=== PATIENT | female | born 1995 | race American Indian/Alaskan Native ===

== ENCOUNTER 2020-10-25 09:20 | Outpatient (CLI) | payer OTHER ==
[2020-10-25 10:58] VITALS: BP 106/68
[2020-10-25 11:11] LABS: Bacteria,Urine 1+ /HPF (Negative); Bilirubin,Urine SM (Negative); Blood,Urine NEG (Negative); Color,Urine Amber (Yellow); Mucus,Urine 3+ /HPF
--- NOTE | 2020-10-25 11:14 | Ultrasound Report ---
ULTRASOUND BIOPHYSICAL PROFILE INDICATION / CLINICAL INFORMATION: [facility]. COMPARISON: 05/20/2020 FINDINGS: BREATHING MOVEMENT = 2 GROSS BODY MOVEMENT = 2 TONE = 2 QUALITATIVE AMNIOTIC FLUID VOLUME = 2 TOTAL BIOPHYSICAL SCORE = 8/8 AMNIOTIC FLUID INDEX (cm) = 8.2 PRESENTATION: Cephalic. HEART RATE (beats per minute): 146 Additional findings: Posterior fundal placenta is unremarkable. No evidence of placental abruption. IMPRESSION: 1. Single live intrauterine without significant abnormality. 2. biophysical profile = 10/27 3. SONIA measures 8.2, within normal limits. Signer Name: Yong Iqbal MD Signed: 10/25/2020 11:07 AM Workstation Name: [id number]
[2020-10-25 11:15] LABS: Ictotest,Urine Negative (Negative)
--- NOTE | 2020-10-25 11:15 | Ultrasound Report ---
ULTRASOUND BIOPHYSICAL PROFILE INDICATION / CLINICAL INFORMATION: rule out placenta abruption. COMPARISON: 05/20/2020 FINDINGS: BREATHING MOVEMENT = 2 GROSS BODY MOVEMENT = 2 TONE = 2 QUALITATIVE AMNIOTIC FLUID VOLUME = 2 TOTAL BIOPHYSICAL SCORE = 8/8 AMNIOTIC FLUID INDEX (cm) = 8.2 PRESENTATION: Cephalic. HEART RATE (beats per minute): 146 Additional findings: Posterior fundal placenta is unremarkable. No evidence of placental abruption. IMPRESSION: 1. Single live intrauterine without significant abnormality. 2. biophysical profile = 10/27 3. SONIA measures 8.2, within normal limits. Signer Name: Yong Iqbal MD Signed: 10/25/2020 11:08 AM Workstation Name: [id number]
== END 2020-10-25 11:29 | disposition home or self-care (01) ==
LOC: TRG 09:20 → APU 09:24 → TRG 11:29
DX: O26.892 Other specified pregnancy related conditions, second trimester (principal); R10.9 Unspecified abdominal pain; Z3A.27 27 weeks gestation of pregnancy
CPT/HCPCS: 59025; 76815; 76819; 81001

== ENCOUNTER 2021-01-07 09:56 | Outpatient (CLI) | payer OTHER ==
[2021-01-07 10:54] VITALS: BP 124/76
--- NOTE | 2021-01-07 11:19 | Ultrasound Report ---
ULTRASOUND OBSTETRIC LIMITED WITH BPP INDICATION / CLINICAL INFORMATION: DECREASED HEARTRATE, LOW HEART RATE - SONIA. Clinical Gestational Age (GA) in weeks.days: 38 weeks and 3 days. TECHNIQUE: Transabdominal. COMPARISON: 10/25/2020. FINDINGS: NUMBER: Single PRESENTATION: cephalic PLACENTA: Posterior fundal. No evidence of placental abruption. AMNIOTIC FLUID VOLUME: normal AMNIOTIC FLUID INDEX (SONIA) in cm (if measured): 10.8 cm Cardiac activity was detected at 122 bpm. Biophysical profile score of 8 out of 8 was calculated with 2 points each for breathing movemen ts, movements, posture and tone, and amniotic fluid volume. IMPRESSION: Single live intrauterine in the cephalic presentation with estimated gestational age of 38 weeks and 3 days. Biophysical profile score of 8 out of 8. Cardiac activity is detected at 122 bpm. This is within the lower limits of normal. Signer Name: Ever Ennis MD Signed: 01/07/2021 11:15 AM Workstation Name: [id number]
== END 2021-01-07 11:03 | disposition home or self-care (01) ==
LOC: TRG 09:56 → APU 09:59 → TRG 11:03
PROVIDERS: ATTEND Obstetrics & Gynecology
DX: O36.8130 Decreased fetal movements, third trimester, not applicable or unspecified (principal); Z3A.38 38 weeks gestation of pregnancy
CPT/HCPCS: 59025; 76815; 76819

== ENCOUNTER 2021-02-04 08:16 | Emergency (ER) | payer OTHER ==
[2021-02-04] MEDS ORDERED: ONDANSETRON 4 MG/2 ML INJ IV ONE (09:03)
[2021-02-04] MEDS ORDERED: MORPHINE 4 MG/1 ML INJ IV ONE (09:03)
--- NOTE | 2021-02-04 09:08 | Emergency Department Report ---
ED General Adult HPI - General Chief complaint: Back Pain/Injury Stated complaint: Vomiting, back pain Time Seen by Provider: 02/04/21 09:02 Source: patient Mode of arrival: Ambulatory Limitations: No Limitations - History of Present Illness Initial comments: 25-year-old -[place] female patient presents with complaints of mid back pain and abdominal pain x3 weeks, worsening over the past 24 hours. She states the pain in her back feels like spasms and that it radiates through into her abdomen. Patient states she is 3 weeks and denies any complications from her vaginal delivery. No other past medical history per patient. She r eports nausea and vomiting without hematemesis/coffee-ground emesis. She also denies any fever/chills/sweats or difficulty breathing. Severity scale (0 -10): 10 - Related Data Home Medications Medication Instructions Recorded Confirmed Last Taken Tylenol See Protocol PO DAILY 02/04/21 02/04/21 Unknown Previous Rx's Medication Instructions Recorded Last Taken Type methocarbamoL [Methocarbamol] 750 - 1,500 mg PO TID PRN #30 02/04/21 Unknown Rx tablet Allergies Allergy/AdvReac Type Severity Reaction Status Date / Time No Known Allergies Allergy Unverified 10/25/20 09:37 ED Review of Systems ROS: Stated complaint: Vomiting, back pain Other details as noted in HPI Constitutional: denies: chills, fever, malaise ENT: denies: throat pain Respiratory: denies: cough, shortness of breath Cardiovascular: chest pain Gastrointestinal: abdominal pain, nausea, vomiting. denies: diarrhea, cons tipation, hematemesis, melena, hematochezia Genitourinary: denies: urgency, dysuria, frequency, hematuria Skin: denies: rash, change in color Neurological: denies: numbness, paresthesias ED Past Medical Hx - Past Medical History Previous Medical History?: No Hx Hypertension: No Hx Diabetes: No Hx Deep Vein Thrombosis: No Hx Renal Disease: No Hx Sickle Cell Disease: No Hx Seizures: No Hx Asthma: No Hx HIV: No - Surgical History Past Surgical History?: No - Social History Smoking Status: Never Smoker - Medications Home Medications: Home Medications Medication Instructions Recorded Confirmed Last Taken Type Tylenol See Protocol PO DAILY 02/04/21 02/04/21 Unknown History methocarbamoL [Methocarbamol] 750 - 1,500 mg PO TID PRN #30 02/04/21 Unknown Rx tablet ED Physical Exam - General Limitations: No Limitations General appearance: alert, other (Patient appears very uncomfortable) - Head Head exam: Present: atraumatic, normocephalic - Eye Eye exam: Present: normal appearance. Absent: scleral icterus - Neck Neck exam: Present: normal inspection - Respiratory Respiratory exam: Present: normal lung sounds bilaterally. Absent: respiratory distress - Cardiovascular Cardiovascular Exam: Present: normal rhythm, tachycardia (Mild) - GI/Abdominal GI/Abdominal exam: Present: soft, tenderness (Mid abdomen), normal bowel sounds. Absent: distended, rigid - Neurological Exam Neurological exam: Present: alert, oriented X3, normal gait - Psychiatric Psychiatric exam: Present: normal affect, normal mood ED Course Vital Signs 02/04/21 02/04/21 02/04/21 08:17 09:30 09:46 Temperature 97.9 F Pulse Rate 104 H 97 H 87 Respiratory 20 14 19 Rate Blood Pressure 161/105 Blood Pressure 164/111 [Right] O2 Sat by Pulse 98 100 Oximetry 02/04/21 02/04/21 02/04/21 10:00 10:02 10:16 Temperature 98.6 F Pulse Rate 91 H 81 90 Respiratory 20 20 15 Rate Blood Pressure 161/105 135/103 Blood Pressure [Right] O2 Sat by Pulse 99 99 98 Oximetry 02/04/21 02/04/21 11:24 12:30 Temperature Pulse Rate Respiratory Rate Blood Pressure 135/103 121/86 Blood Pressure [Right] O2 Sat by Pulse 98 Oximetry ED Medical Decision Making - Lab Data Result diagrams: 02/04/21 09:13 02/04/21 09:13 Lab Results 02/04/21 02/04/21 02/04/21 Range/Units 09:13 09:13 09:13 WBC 5.7 (4.5-11.0) K/mm3 RBC 5.79 H (3.65-5.03) M/mm3 Hgb 14.0 (10.1-14.3) gm/dl Hct 45.7 H (30.3-42.9) % MCV 79 (79-97) fl MCH 24 L (28-32) pg MCHC 31 (30-34) % RDW 14.9 (13.2-15.2) % Plt Count 253 (140-440) K/mm3 Lymph % (Auto) 25.4 (13.4-35.0) % [place] % (Auto) 7.3 (0.0-7.3) % Eos % (Auto) 4.7 H (0.0-4.3) % Baso % (Auto) 0.5 (0.0-1.8) % Lymph # (Auto) 1.5 (1.2-5.4) K/mm3 [place] # (Auto) 0.4 (0.0-0.8) K/mm3 Eos # (Auto) 0.3 (0.0-0.4) K/mm3 Baso # (Auto) 0.0 (0.0-0.1) K/mm3 Seg Neutrophils % 62.1 (40.0-70.0) % Seg Neutrophils # 3.6 (1.8-7.7) K/mm3 D-Dimer 971.52 H (0-234) ng/mlDDU Sodium 139 (137-145) mmol/L Potassium 4.6 (3.6-5.0) mmol/L Chloride 102.9 (98-107) mmol/L Carbon Dioxide 20 L (22-30) mmol/L Anion Gap 21 mmol/L BUN 15 (7-17) mg/dL Creatinine 0.6 (0.6-1.2) mg/dL Estimated GFR > 60 ml/min BUN/Creatinine Ratio 25 % Glucose 99 (65-100) mg/dL Calcium 10.0 (8.4-10.2) mg/dL Total Bilirubin 0.20 (0.1-1.2) mg/dL AST 36 (5-40) units/L ALT 27 (7-56) units/L Alkaline Phosphatase 119 (35-129) units/L Total Protein 8.0 (6.3-8.2) g/dL Albumin 4.5 (3.9-5) g/dL Albumin/Globulin Ratio 1.3 % Lipase 31 (13-60) units/L HCG, Qual (Negative) Urine Color (Yellow) Urine Turbidity (Clear) Urine pH (5.0-7.0) Ur Specific [place] (1.003-1.030) Urine Protein (Negative) mg/dL Urine Glucose (UA) (Negative) mg/dL Urine Ketones (Negative) mg/dL Urine Blood (Negative) Urine Nitrite (Negative) Ur Reducing Substances Urine Bilirubin (Negative) Urine Ictotest Urine Urobilinogen (<2.0) mg/dL Ur Leukocyte Esterase (Negative) Urine WBC (Auto) (0.0-6.0) /HPF Urine RBC (Auto) (0.0-6.0) /HPF U Epithel Cells (Auto) (0-13.0) /HPF Urine Mucus /HPF Urine HCG, Qual (Negative) 02/04/21 02/04/21 Range/Units 09:42 12:36 WBC (4.5-11.0) K/mm3 RBC (3.65-5.03) M/mm3 Hgb (10.1-14.3) gm/dl Hct (30.3-42.9) % MCV (79-97) fl MCH (28-32) pg MCHC (30-34) % RDW (13.2-15.2) % Plt Count (140-440) K/mm3 Lymph % (Auto) (13.4-35.0) % [place] % (Auto) (0.0-7.3) % Eos % (Auto) (0.0-4.3) % Baso % (Auto) (0.0-1.8) % Lymph # (Auto) (1.2-5.4) K/mm3 [place] # (Auto) (0.0-0.8) K/mm3 Eos # (Auto) (0.0-0.4) K/mm3 Baso # (Auto) (0.0-0.1) K/mm3 Seg Neutrophils % (40.0-70.0) % Seg Neutrophils # (1.8-7.7) K/mm3 D-Dimer (0-234) ng/mlDDU Sodium (137-145) mmol/L Potassium (3.6-5.0) mmol/L Chloride (98-107) mmol/L Carbon Dioxide (22-30) mmol/L Anion Gap mmol/L BUN (7-17) mg/dL Creatinine (0.6-1.2) mg/dL Estimated GFR ml/min BUN/Creatinine Ratio % Glucose (65-100) mg/dL Calcium (8.4-10.2) mg/dL Total Bilirubin (0.1-1.2) mg/dL AST (5-40) units/L ALT (7-56) units/L Alkaline Phosphatase (35-129) units/L Total Protein (6.3-8.2) g/dL Albumin (3.9-5) g/dL Albumin/Globulin Ratio % Lipase (13-60) units/L HCG, Qual Negative (Negative) Urine Color Yellow (Yellow) Urine Turbidity Hazy (Clear) Urine pH 5.0 (5.0-7.0) Ur Specific [place] 1.043 H (1.003-1.030) Urine Protein <15 mg/dl (Negative) mg/dL Urine Glucose (UA) Neg (Negative) mg/dL Urine Ketones Neg (Negative) mg/dL Urine Blood Sm (Negative) Urine Nitrite Neg (Negative) Ur Reducing Substances Not Reportable Urine Bilirubin Neg (Negative) Urine Ictotest Not Reportable Urine Urobilinogen < 2.0 (<2.0) mg/dL Ur Leukocyte Esterase Neg (Negative) Urine WBC (Auto) 4.0 (0.0-6.0) /HPF Urine RBC (Auto) 1.0 (0.0-6.0) /HPF U Epithel Cells (Auto) 25.0 H (0-13.0) /HPF Urine Mucus 1+ /HPF Urine HCG, Qual Negative (Negative) - Radiology Data Radiology results: report reviewed CTA CHEST WITH IV CONTRAST INDICATION: + dimer, tearing thoracic pain, 3 wk . TECHNIQUE: Axial CT images were obtained through the chest after injection of IV contrast. 3 plane MIP reconstructions were produced. All CT scans at this location are performed using CT dose reduction for ALARA by means of automated exposure control. COMPARISON: None available. FINDINGS: Pulmonary Arteries: No pulmonary emboli. Lungs: No significant abnormality. Trachea and Bronchi: No significant abnormality. Heart and Pericardium: No significant abnormality. Vasculature: No significant abnormality. Lymphatics: No lymphadenopathy. Additional Findings: None. Upper Abdomen: No acute findings. Skeletal Structures: No acute findings or aggressive bone lesions. IMPRESSION: 1. No CT evidence for pulmonary embolism. 2. No acute findings. - Medical Decision Making 25-year-old -[place] female patient presents with complaints of mid back pain and abdominal pain x3 weeks, worsening over the past 24 hours. She states the pain in her back feels like spasms and that it radiates through into her abdomen. Patient states she is 3 weeks and denies any complications from her vaginal delivery. No other past medical history per patient. She reports nausea and vomiting without hematemesis/coffee-ground emesis. She also denies any fever/chills/sweats or difficulty breathing. PERC score = 1. Patient also at risk of clot due to recent . Dimer positive. CTA chest and abdomen is negative for any acute abnormalities. Patient's pain has resolved with meds given here in the ED. blood pressure improved with pain control is now 126/86. She admits to hypertension during her that was monitored closely without medication. She is stable for discharge home and follow-up with PCP. Discussed in detail signs and symptoms that should prompt immediate return to the ED with patient who verbalizes understanding. Critical care attestation.: If time is entered above; I have spent that time in minutes in the direct care of this critically ill patient, excluding procedure time. ED Disposition Clinical Impression: Back pain, Abdominal pain, Muscle spasm Disposition: 01 HOME / SELF CARE / HOMELESS Is pt being admited?: No Condition: Stable Instructions: Muscle Cramps and Spasms, Abdominal Pain, Adult, [id number] Prescriptions: methocarbamoL [Methocarbamol] 750 - 1,500 mg PO TID PRN #30 tablet PRN Reason: Muscle spasms Referrals: PRIMARY CARE, [Primary Care Provider] - 3-5 Days
[2021-02-04 09:55] LABS: Basophils % (Auto) 0.5 % (0.0-1.8); Eosinophils # (Auto) 0.3 K/mm3 (0.0-0.4); Eosinophils % (Auto) 4.7 % (0.0-4.3); Hematocrit 45.7 % (30.3-42.9); Lymphocytes # (Auto) 1.5 K/mm3 (1.2-5.4); Lymphocytes % (Auto) 25.4 % (13.4-35.0); Mean Corpuscular HGB Conc 31 % (30-34); Mean Corpuscular Volume 79 fl (79-97); Monocytes # (Auto) 0.4 K/mm3 (0.0-0.8); Monocytes % (Auto) 7.3 % (0.0-7.3); Platelet Count 253 K/mm3 (140-440); Red Blood Count 5.79 M/mm3 (3.65-5.03); Red Cell Distribution Width 14.9 % (13.2-15.2)
[2021-02-04] MEDS ORDERED: methOCARBAMOL 1,000 MG in SODIUM CHLORIDE 0.9% 250ML 250 ML IV ONE (10:00)
[2021-02-04 10:17] LABS: Alanine Aminotransferase 27 units/L (7-56); Albumin 4.5 g/dL (3.9-5); Blood Urea Nitrogen 15 mg/dL (7-17); Hemolysis Index 4
[2021-02-04 10:19] LABS: BUN/Creatinine Ratio 25
[2021-02-04] MEDS ORDERED: SODIUM CHLORIDE 0.9% 1000 ML 1,000 ML IV ONE (10:21)
--- NOTE | 2021-02-04 11:24 | XRay Report ---
CHEST 2 VIEWS INDICATION / CLINICAL INFORMATION: pain. COMPARISON: None available. FINDINGS: SUPPORT DEVICES: None. HEART / MEDIASTINUM: No significant abnormality. LUNGS / PLEURA: No significant pulmonary or pleural abnormality. No pneumothorax. ADDITIONAL FINDINGS: No significant additional findings. IMPRESSION: 1. No acute findings. Signer Name: Oc Mackenzie MD Signed: 02/04/2021 11:20 AM Workstation Name: [id number]
--- NOTE | 2021-02-04 11:42 | Cat Scan Report ---
CTA CHEST WITH IV CONTRAST INDICATION: + dimer, tearing thoracic pain, 3 wk . TECHNIQUE: Axial CT images were obtained through the chest after injection of IV contrast. 3 plane MIP reconstru ctions were produced. All CT scans at this location are performed using CT dose reduction for ALARA b y means of automated exposure control. COMPARISON: None available. FINDINGS: Pulmonary Arteries: No pulmonary emboli. Lungs: No significant abnormality. Trachea and Bronchi: No significant abnormality. Heart and Pericardium: No significant abnormality. Vasculature: No significant abnormality. Lymphatics: No lymphadenopathy. Additional Findings: None. Upper Abdomen: No acute findings. Skeletal Structures: No acute findings or aggressive bone lesions. IMPRESSION: 1. No CT evidence for pulmonary embolism. 2. No acute findings. Signer Name: Oc Mackenzie MD Signed: 02/04/2021 11:36 AM Workstation Name: [id number]
--- NOTE | 2021-02-04 11:44 | Cat Scan Report ---
CT ABDOMEN AND PELVIS WITH CONTRAST HISTORY: abdominal pain, 3 weeks COMPARISON: None TECHNIQUE: Routine abdominal and pelvic CT exam performed following intravenous contrast administrat ion.. All CT scans at this location are performed using CT dose reduction for ALARA by means of autom ated exposure control. FINDINGS: CT ABDOMEN: Lung Bases: No significant abnormality. Liver: No significant abnormality. Biliary: No significant abnormality. Spleen: No significant abnormality. Unenlarged. Pancreas: No significant abnormality. Adrenals: No significant abnormality. Kidneys: No significant abnormality. Lymphatics: No lymphadenopathy. Vasculature: No significant abnormality. Bowel/Peritoneum: No significant abnormality. No free air. No free fluid. CT PELVIC: : Uterus is mildly enlarged consistent with recent . There are no fluid collections in the pelvis. There is no free fluid. Lymphatics: No lymphadenopathy. Osseous Structures: No aggressive appearing osseous lesions. Additional Findings: None IMPRESSION: 1. No significant abnormality. Signer Name: Oc Mackenzie MD Signed: 02/04/2021 11:38 AM Workstation Name: [id number]
[2021-02-04] MEDS ORDERED: KETOROLAC 30 MG/1 ML INJ IV ONE (12:12)
[2021-02-04 12:34] VITALS: BP 121/86
[2021-02-04 12:58] LABS: HCG Qualitative,Urine Negative (Negative)
[2021-02-04 13:04] LABS: Bilirubin,Urine NEG (Negative); Blood,Urine SM (Negative); Color,Urine Yellow (Yellow); Mucus,Urine 1+ /HPF; Protein,Urine <15 mg/dL mg/dL (Negative); Urobilinogen,Urine < 2.0 mg/dL (<2.0)
== END 2021-02-04 13:49 | disposition home or self-care (01) ==
LOC: ED 08:16
DX: M54.9 Dorsalgia, unspecified (principal); R10.9 Unspecified abdominal pain; M62.830 Muscle spasm of back
CPT/HCPCS: 36415; 71046; 71275; 74177; 80053; 81001; 81025; 83690; 83735; 84703; 85025; 85379; 96361; 96365; 96375; 99284; J1885; J2270; J2405; J2800; J7030; J7050; Q9967; Q0162

== ENCOUNTER 2021-02-04 22:07 | Emergency (ER) | payer OTHER ==
[2021-02-04 22:19] VITALS: BP 136/88
[2021-02-04] MEDS ORDERED: HYDROcodone/ACETAMINOPHEN 5-325 MG TAB PO ONE (23:44)
[2021-02-04] MEDS ORDERED: IBUPROFEN 800 MG TAB PO ONE (23:44)
--- NOTE | 2021-02-04 23:49 | Emergency Department Report ---
ED General Adult HPI - General Chief complaint: Abdominal Pain Stated complaint: MUSCLE SPASMS PUI?: No Time Seen by Provider: 02/04/21 23:36 Source: EMS Mode of arrival: Stretcher Limitations: No Limitations - History of Present Illness Initial comments: CC: back pain, abdominal pain HPI: THis is a 25-year-old female who is 3 weeks vaginal delivery. She has had back pain abdominal pain since delivering her baby. She required 3 different attempts at epidural insertion. She feels that the several symptoms have caused persistent back pain. Today she was evaluated by my colleague. CT abdomen pelvis revealed no significant abnormality. CT chest angiogram negative for significant abnormality. She is only formula feeding her child. She is not breast-feeding. She feels body spasms. She has been in good mood. She denies depression. -: Gradual, week(s) (3 weeks worse over the last day) Location: back (Central right flank pain in the back, abdominal cramping) Consistency: intermittent Improves with: none Worsens with: none Associated Symptoms: denies other symptoms - Related Data Home Medications Medication Instructions Recorded Confirmed Last Taken Tylenol See Protocol PO DAILY 02/04/21 02/04/21 Unknown Previous Rx's Medication Instructions Recorded Last Taken Type HYDROcodone/APAP 5-325 [[place] 1 each PO Q6HR PRN #15 tablet 02/04/21 Unknown Rx 5/325] Ibuprofen [Motrin 400 MG tab] 400 mg PO TID 5 Days #15 tablet 02/04/21 Unknown Rx methocarbamoL [Methocarbamol] 750 - 1,500 mg PO TID PRN #30 02/04/21 Unknown Rx tablet Allergies Allergy/AdvReac Type Severity Reaction Status Date / Time No Known Allergies Allergy Unverified 10/25/20 09:37 ED Review of Systems ROS: Stated complaint: MUSCLE SPASMS Other details as noted in HPI Comment: All other systems reviewed and negative Constitutional: denies: chills, fever, malaise Respiratory: denies: cough, shortness of breath Cardiovascular: denies: chest pain Gastrointestinal: abdominal pain Musculoskeletal: back pain ED Past Medical Hx - Past Medical History Previous Medical History?: No Hx Hypertension: No Hx Diabetes: No Hx Deep Vein Thrombosis: No Hx Renal Disease: No Hx Sickle Cell Disease: No Hx Seizures: No Hx Asthma: No Hx HIV: No - Surgical History Past Surgical History?: No - Social History Smoking Status: Never Smoker Substance Use Type: None - Medications Home Medications: Home Medications Medication Instructions Recorded Confirmed Last Taken Type HYDROcodone/APAP 5-325 [[place] 1 each PO Q6HR PRN #15 tablet 02/04/21 Unknown Rx 5/325] Ibuprofen [Motrin 400 MG tab] 400 mg PO TID 5 Days #15 tablet 02/04/21 Unknown Rx Tylenol See Protocol PO DAILY 02/04/21 02/04/21 Unknown History methocarbamoL [Methocarbamol] 750 - 1,500 mg PO TID PRN #30 02/04/21 Unknown Rx tablet ED Physical Exam - General Limitations: No Limitations General appearance: alert, in no apparent distress - Head Head exam: Present: atraumatic, normocephalic - Eye Eye exam: Present: normal appearance - ENT ENT exam: Present: mucous membranes moist - Neck Neck exam: Present: normal inspection, full ROM - Respiratory Respiratory exam: Present: normal lung sounds bilaterally. Absent: respiratory distress, wheezes, rales, rhonchi - Cardiovascular Cardiovascular Exam: Present: regular rate, normal rhythm, normal heart sounds. Absent: systolic murmur, diastolic murmur, rubs, gallop - GI/Abdominal GI/Abdominal exam: Present: soft, normal bowel sounds. Absent: distended, t enderness, guarding, rebound - Extremities Exam Extremities exam: Present: normal inspection - Back Exam Back exam: Present: normal inspection, full ROM, muscle spasm - Neurological Exam Neurological exam: Present: alert, oriented X3 - Psychiatric Psychiatric exam: Present: normal affect, normal mood - Skin Skin exam: Present: warm, dry, intact, normal color. Absent: rash ED Course Vital Signs 02/04/21 22:17 Temperature 98.7 F Pulse Rate 100 H Respiratory 16 Rate Blood Pressure 136/88 [Left] O2 Sat by Pulse 100 Oximetry ED Medical Decision Making - Medical Decision Making Back abdominal pain with history of epidural analgesia: Patient extremities are neurologically intact, possibly mild adverse effect of epidural anesthesia. Referred to spine surgeon for follow-up. No bowel or bladder incontinence. Prescribed ibuprofen [place] she was prescribed methocarbamol by my colleague. Critical care attestation.: If time is entered above; I have spent that time in minutes in the direct care of this critically ill patient, excluding procedure time. ED Disposition Clinical Impression: Back pain, Muscle spasm Disposition: HOME / SELF CARE / HOMELESS Is pt being admited?: No Does the pt Need Aspirin: No Condition: Stable Instructions: Abdominal Pain (ED), Acute Back Pain, Adult Prescriptions: Ibuprofen [Motrin 400 MG tab] 400 mg PO TID 5 Days #15 tablet HYDROcodone/APAP 5-325 [[place] 5/325] 1 each PO Q6HR PRN #15 tablet PRN Reason: Pain Referrals: HELENE DE LA PAZ II, MD [Staff Physician] - 3-5 Days
== END 2021-02-05 17:39 | disposition home or self-care (01) ==
LOC: ED 22:07
DX: R10.9 Unspecified abdominal pain (principal); M62.838 Other muscle spasm; M54.9 Dorsalgia, unspecified
CPT/HCPCS: 99283

== ENCOUNTER 2021-03-05 17:33 | Emergency (ER) | payer OTHER ==
[2021-03-05 17:37] VITALS: BP 124/86
== END 2021-03-05 19:48 ==
LOC: ED 17:33
DX: M79.601 Pain in right arm (principal); Z53.21 Procedure and treatment not carried out due to patient leaving prior to being seen by health care provider